=== PATIENT | male | born 1995 | race Caucasian/White ===

== ENCOUNTER 2022-11-27 18:59 | Emergency (ER) | payer BC, SELFPAY ==
--- NOTE | ~2022-11-27 | US_ITS ---
EXAMINATION: US scrotum doppler DATE: 11/27/2022 20:47 INDICATION: testicular pain . TECHNIQUE: Grayscale and Doppler ultrasound images of the testes were obtained. COMPARISON: None. FINDINGS: The right testis measures 4.6 x 2.2 x 2.8 cm. The left testis measures 4.4 x 2.9 x 2.6 cm. No testicular mass. There is normal vascular flow to both testes. The right epididymis is normal with normal vascular flow. The left epididymis is normal with normal vascular flow. There is no varicocel e or hydrocele. IMPRESSION: Normal scrotal ultrasound findings. Reviewed, dictated and finalized at location [facility]. [facility]
[2022-11-27 19:55] VITALS: BP 177/81; PULSE 108; RESP 18; TEMP 36.9; O2SAT 100
--- NOTE | 2022-11-27 21:48 | ED.MALEGU ---
HPI - Male Genitourinary General Chief complaint: Urogenital-Male Stated complaint: test pain Time Seen by Provider: 11/27/22 21:33 History of Present Illness HPI Narrative: This is a 27-year-old male who was started on doxycycline by his primary care doctor 2 days ago for epididymitis but denies any past medical history, presents the emergency department complaining of right testicle feeling soft. He denies significant pain, though notes the right testicle felt numb. He states the numbness did not spread and is not associated with bowel or bladder incontinence or leg weakness. He denies back pain or fevers. He denies dysuria or hematuria Related Data Allergies Allergy/AdvReac Type Severity Reaction Status Date / Time No Known Allergies Allergy Verified 11/27/22 21:53 Review of Systems Review of Systems: CONSTITUTIONAL: Denies fever, chills, or sweats. EYES: Denies visual changes, redness, or discharge. ENT: Denies rhinorrhea, congestion, sore throat, or otalgia. CARDIOVASCULAR: Denies chest pain, palpitations, or edema. RESPIRATORY: Denies cough or dyspnea. GASTROINTESTINAL: Denies abdominal pain, nausea, vomiting, or diarrhea. GENITOURINARY: Denies dysuria or hematuria. SKIN: Denies rash or itching. MUSCULOSKELETAL: Denies back pain, joint pain, or myalgia. NEUROLOGIC: Denies headache, numbness, dizziness, or weakness. PSYCHIATRIC: Denies anxiety or depression. Exam Narrative: GENERAL: Well-appearing, well-nourished, and in no acute distress. HEAD: Normocephalic, atraumatic. EYES: PERRLA and EOMI. CHEST: Clear to auscultation. No respiratory distress. No wheezes rales or rhonchi HEART: Regular rate and rhythm. No murmur heard. Normal peripheral pulses. ABDOMEN: Soft, nontender, nondistended, normal active bowel sounds. : Normal-appearing male genitalia, circumcised, cremasteric reflex intact, no tenderness to palpation, no noted swelling or erythema of the scrotum. No palpable mass. BACK: No midline spine tenderness to palpation. No crepitus or step-off. No erythema or induration EXTREMITIES: Normal range of motion. No edema. SKIN: Warm, dry, no rash. NEURO: No focal deficits. Alert and oriented x3. PSYCH: Normal mood and affect. Course Course Emergency Course: 21:50 - Ultrasound of the scrotum is normal and not concerning for torsion or mass. I advised the patient to continue his doxycycline as previously prescribed. I do not suspect cauda equina, given the patient's complaint of numbness. However, I discussed return emergent precautions including signs/symptoms of cauda equina and testicular torsion. Patient voiced understanding and is comfortable with the plan. All questions answered to his satisfaction. Vital Signs Vital signs: Vital Signs Temperature 98.5 F 11/27/22 19:55 Pulse Rate 108 H 11/27/22 19:55 Respiratory Rate 18 11/27/22 19:55 Blood Pressure 177/81 H 11/27/22 19:55 Pulse Oximetry 100 11/27/22 19:55 Oxygen Delivery Room Air 11/27/22 19:55 Temperature 98.5 F 11/27/22 19:55 Pulse Rate 108 H 11/27/22 19:55 Respiratory Rate 18 11/27/22 19:55 Blood Pressure 177/81 H 11/27/22 19:55 Pulse Oximetry 100 11/27/22 19:55 Oxygen Delivery Room Air 11/27/22 19:55 MDM - Male Genitourinary MDM Narrative Medical decision making narrative: Plan: Scrotal ultrasound, reassess Differential Diagnosis Differential diagnosis: Likely epididymitis and other (Torsion, testicular mass, hydrocele, other) Discharge Plan Discharge Clinical Impression: Epididymitis Patient Disposition: Home, Self-Care Condition: Stable Instructions: Antibiotic Form, Epididymitis (ED) Additional Instructions: You were seen in the emergency department. An ultrasound was not concerning for mass or torsion. I suspect your symptoms are related to epididymitis. I recommend continuing the antibiotics prescribed by your primary care doctor as well as follow-up and repeat urinalysis.
== END 2022-11-27 22:04 | disposition home or self-care (01) ==
LOC: ANHED 21:56
PROVIDERS: Emergency Provider Preventive Medicine Aerospace Medicine
DX: N45.1 Epididymitis (principal)
CPT/HCPCS: 76870; 93976; 99284